=== PATIENT | male | born 1940 | race Caucasian/White ===

== ENCOUNTER 2018-08-07 06:01 | Day surgery (SDC) | payer MEDICARE ==
[~2018-08-07 06:01] MED LIST: ACETAMINOPHEN 1,000 MG/100 ML BTL IV ONE; CEFAZOLIN 2 Gram 2 GM/50 ML BAG IVPB ONE; CELECOXIB 100 MG CAPSULE PO ONE; FAMOTIDINE 20MG TABLET PO ONE; MECLIZINE 25 MG TABLET PO ONE; METOCLOPRAMIDE 10 MG TABLET PO ONE
[2018-08-07] MEDS ORDERED: DEXAMETHASONE 4 MG/ML 1ML VIAL IVP ONE (06:02)
[2018-08-07] MEDS ORDERED: SEVOFLURANE 250 ML INH ONE (06:02)
[2018-08-07] MEDS ORDERED: TRANEXAMIC ACID 1,000 MG/10 ML ML IV ONE (06:02)
[2018-08-07] MEDS ORDERED: LIDOCAINE 2% MDV (20MG/ML) 20ML VIAL IV ONE (06:02)
[2018-08-07] MEDS ORDERED: BUPIVACAINE LIPOSOME 266MG/20ML VIAL IV ONE (06:02)
[2018-08-07] MEDS ORDERED: PROPOFOL 10 MG/ML VIAL IV ONE (06:02)
[2018-08-07] MEDS ORDERED: HYDROMORPHONE HCL 2 MG/ML VIAL IV ONE (06:02)
[2018-08-07] MEDS ORDERED: FENTANYL PF 100MCG/2ML VIAL IV ONE (06:02)
[2018-08-07] MEDS ORDERED: ROPIVACAINE HCL (NAROPIN) /PF 5MG/ML 20ML VIAL IV ONE (06:02)
[2018-08-07] MEDS ORDERED: KETOROLAC 30 MG/ML VIAL IVP ONE (06:02)
[2018-08-07] MEDS ORDERED: MIDAZOLAM HCL 2MG/2ML VIAL IV ONE (06:02)
[2018-08-07] MEDS ORDERED: BUPIVACAINE 0.25% W/EPI MPF 30ML VIAL IVP ONE (06:02)
[2018-08-07] MEDS ORDERED: OXYCODONE HCL/APAP 5MG/325MG TABLET PO PRN (10:08)
[2018-08-07] MEDS ORDERED: HYDROCODONE/APAP 5/325MG TABLET PO PRN ×2 (10:08)
[2018-08-07] MEDS ORDERED: METOCLOPRAMIDE HCL 10 MG/2 ML VIAL IVP PRN (10:15)
[2018-08-07] MEDS ORDERED: MAGNESIUM HYDROXIDE 30 ML UDC PO PRN (10:15)
[2018-08-07] MEDS ORDERED: SENNOSIDES/DOCUSATE SODIUM UD CAPSULE PO PRN (10:15)
[2018-08-07] MEDS ORDERED: HYDROMORPHONE HCL 2 MG/ML VIAL IV PRN (10:15)
[2018-08-07] MEDS ORDERED: NALOXONE 0.4 MG/1 ML VIAL IVP PRN (10:15)
[2018-08-07] MEDS ORDERED: DIPHENHYDRAMINE HCL 25 MG CAPSULE PO PRN (10:15)
[2018-08-07] MEDS ORDERED: TRAMADOL HCL 50 MG TABLET PO PRN ×2 (10:15)
[2018-08-07] MEDS ORDERED: AL HYDROX/MAG HYDROX 30ML UD PO PRN (10:15)
[2018-08-07] MEDS ORDERED: ONDANSETRON HCL IV 4 MG/2 ML VIAL IVP PRN (10:15)
[2018-08-07] MEDS ORDERED: ZOLPIDEM TARTRATE 5 MG TABLET PO PRN (10:15)
[2018-08-07] MEDS ORDERED: TRANEXAMIC ACID 1,000 MG in 0.9 % SODIUM CHLORIDE 100ML 100 ML IVPB ONE (11:00)
[2018-08-07] MEDS: RINGERS SOLUTION,LACTATED 1,000 ML IV SCH (13:25)
--- NOTE | 2018-08-07 15:01 | Rehab Evaluation ---
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 left shoulder right elbow sx right ear sx PMH - Respiratory Hx Respiratory Disorders Yes Hx Pneumonia Yes: after CABG Hx Sleep Apnea Yes Hx of CPAP No PMH - Cardiovascular Hx Cardiovascular Disorders Yes Hx Abnormal EKG Yes Hx Cardiac Catheterization Yes Hx Congestive Heart Failure Yes: possibly after CABG Hx Heart Attack No Hx Coronary Artery Disease Yes Hx Coronary Artery Bypass Yes Graft Hx Heart Murmur Yes Hx of Prosthetic Valve Yes: Aortic 8 yrs ago Exercise Tolerance Good Comment: hyperlipidemia PMH - Neuro Hx Neurological Disorders No PMH - GI Hx Gastrointestinal Disorders No PMH - Hx Genitourinary Disorders No PMH - Endocrine Hx Endocrine Disorders No PMH - Musculoskeletal Hx Musculoskeletal Disorders Yes Hx Arthritis Yes: knees Comment: right knee pain PMH - Psych Hx Psychiatric Problems No PMH - Hematology/Oncology Hx Hematology/Oncology Yes Disorders Hx Bruising Yes: easy bruising Premorbid Status: Detail (The patient was previously independent with all mobility prior to surgery.) Social History: Detail (The patient lives alone in a one story house with no stairs at the enterance. The patient has a friend who will be staying with him initially. The patient's bathroom is equipped with a walk in shower with a seat and a standard toilet. The patient has a standard walker and a single point cane.) Precautions: [place], Fall - Time With Patient Total Time Spent With Patient (Min): 30 Treatment Procedures: Detail (Initial Evaluation, gait training) Subjective Information - Subjective Information Per Patient (The patient had no complaints of pain but stated he felt lethargic. ) Objective Data - Mental Status Patient Orientation: Oriented x3 - Visual Perception Appears within normal limits for therapeutic activities - ROM Not within normal limits (The patient's R knee is limited as to be expected s/p surgery.) - Strength/Tone Not within normal limits (The patient 's R LE strength was not tested secondary to s/p surgery however the patient's strength is functional ie: the patient is able to complete a SLR. The patient's L LE strength was generally 4+ to 5/5.) - Bed Mobility Independent (The patient was independent with supine to and from sit transfer and scooting up in bed with use of trapeze.) - Transfers Independent (The patient was independent with sit to and from stand transfer.) - Balance Balance Sitting: Good Balance Standing: Good - Sensation Intact - Gait Detail (The patient ambulated with standard walker a distance of 108 feet WBAT on the R LE with CG for safety.) Therapy Assessment - Therapy Assessment Detail (The patient was independent with bed mobility and transfers and ambulated community distances. Feel the patient will progress well with mobility.) Problem List - Problem List Physical Therapy Problem List: Detail (1) Decreased R knee AROM 2) Decreased R LE strength) Goals - Goals Physical Therapy Goals: The patient will be independent with TKA HEP and will be able to indentify the proper technique of stair climbing. Prognosis - Prognosis Good Plan - Plan Physical Therapy Plan: PT 1-2 sessions for instruction in HEP.
[2018-08-07] MEDS: PATIENT OWN MED: ALPRAZOLAM 0.5 MG PO SCH (15:10)
--- NOTE | 2018-08-07 16:50 | Operative Note ---
DATE OF SURGERY: 08/07/2018 Surgeon: Liam Blankenship DO Referring physician: Aldo Man DO PREOPERATIVE DIAGNOSIS: Primary osteoarthritis of the right knee. POSTOPERATIVE DIAGNOSIS: Primary osteoarthritis of the right knee. OPERATION: Right total knee arthroplasty. Anesthesia: General. Indication: This 78-year-old male was taken to the operating room and placed in the supine position on the operating room table. A general anesthetic was induced. The right lower extremity was elevated, prepped with Hibiclens and draped in the usual sterile fashion. All scrubbed personnel wore personal isolation suits. After exsanguination and tourniquet and elevation, an anterior longitudinal midline incision was made, followed by a medial parapatellar arthrotomy incision. The intercondylar drill hole was made for the intramedullary alignment juanjo and the distal femoral cutting block was placed at 6 degree valgus 9 mm cut for the distal femur. The appropriate cut was made and subsequently the sizing jig was fixed and a size 72.5 was seen to be the appropriate size. The 4-in-1 cutting block was then pinned in 3 degrees of external rotation and the appropriate cuts were made. We then directed our attention to the proximal tibia. An extramedullary alignment guide was used to cut the proximal tibia. Once the cutting block had been set, we had referenced a 10 mm cut off the lateral tibial plateau. This was just enough to get us below the subchondral bone medially and the appropriate cut was subsequently made, a 3 degree posterior slope cut was made. The wafers of bone were removed. Remnants of the menisci and osteophytes were removed from the posterior aspect of the joint. The wound was irrigated to remove debris from the joint. The tissue tensioning device was used to assure equal flexion and extension gaps. Once this was found to be satisfactory, the patella was cut and restored to anatomic height with a 37 x 10 mm patella. The tibia was sized to a size 83 and a stem punch was used. A 10 mm bearing was subsequently inserted with a 72.5 femur and trial reduction was accomplished with the trial component. The patient had full extension with excellent stability medially and laterally throughout the entire range of motion, with no instability in flexion. The trial components were then removed and the wound copiously irrigated with pulse lavage lactated Ringer's solution. Exparel was injected into the posterior medial and lateral corners of the joint. All bony surfaces were dried and after the insertion of each component excess cement was removed. We began with the tibial component. This was cemented first, followed by the insertion of the tibia bearing, femoral component, and finally the patella. Once the cement had hardened, the knee was again taken through range of motion and was found to be stable. The remainder of the Exparel was injected in the periosteum and joint capsule of the proximal tibia and distal femur. The drain was placed through a separate stab incision and the arthrotomy incision was closed with #2 Vicryl, the subcutaneous tissue closed with 0 Vicryl and the skin was stapled. Sterile dressings with a Polar Care were applied. The patient was taken to the recovery room in satisfactory condition. GROSS PATHOLOGY: This patient demonstrated severe medial compartment and patellofemoral osteoarthritis with full-thickness articular cartilage loss noted in both, the lateral compartment being more relatively spared with grade 2 changes being noted there. Final components inserted were: A Renaldo [employer] size 72.5 cruciate retaining femur, a size 83 tibia base plate, a 10 mm anterior stabilized tibial bearing, and a 37 x 10 mm patella was used. EVELYEN
[2018-08-07] MEDS: CEFAZOLIN 2 Gram 2 GM/50 ML BAG IVPB SCH (16:59)
[2018-08-07] MEDS: OXYCODONE HCL/APAP 5MG/325MG TABLET PO PRN (19:01)
[2018-08-07] MEDS: ASPIRIN 325 MG TAB ENTERIC-COATED PO SCH (21:46)
[2018-08-07] MEDS ORDERED: PATIENT OWN MED: FENOFIBRATE 160 MG PO SCH (22:00)
[2018-08-07] MEDS ORDERED: ZOLPIDEM 5 MG PO SCH (22:00)
[2018-08-07] MEDS ORDERED: ATROVASTATIN 40 MG PO SCH (22:00)
[2018-08-08] MEDS: RINGERS SOLUTION,LACTATED 1,000 ML IV SCH ×2 (00:05→04:53)
[2018-08-08] MEDS: CEFAZOLIN 2 Gram 2 GM/50 ML BAG IVPB SCH ×2 (00:07→06:40)
[2018-08-08] MEDS: OXYCODONE HCL/APAP 5MG/325MG TABLET PO PRN (01:25)
[2018-08-08] MEDS: PATIENT OWN MED: ALPRAZOLAM 0.5 MG PO SCH ×3 (06:42→12:10)
[2018-08-08 06:45] LABS: HEMATOCRIT 33.8 % (42.0-52.0); HEMOGLOBIN 10.9 gm/dl (14.0-18.0); MEAN CELL VOLUME 91.8 fl (81-97); MEAN CORPUSCULAR HEMOGLOBIN 29.6 pg (27-33); MEAN CORPUSCULAR HGB CONC 32.2 g/dl (32-36); MEAN PLATELET VOLUME 9.7 fl (7.4-10.4); PLATELET COUNT 163 K/uL (130-400); RED BLOOD COUNT 3.68 M/uL (4.40-5.70); RED CELL DISTRIBUTION WIDTH 13.4 % (11.5-14.5); WHITE BLOOD COUNT W/O DIFF 13.3 K/uL (4.2-12.2)
[2018-08-08] MEDS: ASPIRIN 325 MG TAB ENTERIC-COATED PO SCH (09:43)
--- NOTE | 2018-08-08 09:46 | Physical Therapy Tx Note ---
Physical Therapy Tx Note - Treatment Note Tolerated: Good Total Time Spent With Patient: 20 Physical Therapy Tx Note: Detail (The patient was in bed when PT arrived. The patient had no complaints of pain. The patient completed TKA exercises: heel slides, ankle pumps, quad sets, hamstring sets, gluteal sets,SLR .The patient does not have stairs at home but was able to verbalize the proper technique of climbing stairs. The patient ambulated 120 feet x 1 with standard walker WBAT on the R LE. The patient has met all inpatient goals.) Physical Therapy Problem List: Detail (1) Decreased R knee AROM 2) Decreased R LE strength) Physical Therapy Goals: GOALS MET: The patient will be independent with TKA HEP and will be able to indentify the proper technique of stair climbing. Physical Therapy Plan: PT 1-2 sessions for instruction in HEP.
--- NOTE | 2018-08-08 09:52 | Physical Therapy Tx Note ---
Physical Therapy Tx Note - Treatment Note Physical Therapy Tx Note: Detail (In addition to previous note. see plan.) Physical Therapy Problem List: Detail (1) Decreased R knee AROM 2) Decreased R LE strength) Physical Therapy Goals: GOALS MET: The patient will be independent with TKA HEP and will be able to indentify the proper technique of stair climbing. Physical Therapy Plan: Patient is discharged from PT and is to continue with outpatient PT.
[2018-08-08] MEDS ORDERED: CELECOXIB 100 MG CAPSULE PO SCH (10:00)
[2018-08-08] MEDS ORDERED: PATIENT OWN MED: SERTRALINE 50 MG PO SCH (10:00)
[2018-08-08] MEDS ORDERED: ACETAMINOPHEN 325 MG TAB PO PRN (10:15)
--- NOTE | 2018-08-08 11:29 | Rehab Evaluation ---
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 left shoulder right elbow sx right ear sx PMH - Respiratory Hx Respiratory Disorders Yes Hx Pneumonia Yes: after CABG Hx Sleep Apnea Yes Hx of CPAP No PMH - Cardiovascular Hx Cardiovascular Disorders Yes Hx Abnormal EKG Yes Hx Cardiac Catheterization Yes Hx Congestive Heart Failure Yes: possibly after CABG Hx Heart Attack No Hx Coronary Artery Disease Yes Hx Coronary Artery Bypass Yes Graft Hx Heart Murmur Yes Hx of Prosthetic Valve Yes: Aortic 8 yrs ago Exercise Tolerance Good Comment: hyperlipidemia PMH - Neuro Hx Neurological Disorders No PMH - GI Hx Gastrointestinal Disorders No PMH - Hx Genitourinary Disorders No PMH - Endocrine Hx Endocrine Disorders No PMH - Musculoskeletal Hx Musculoskeletal Disorders Yes Hx Arthritis Yes: knees Comment: right knee pain PMH - Psych Hx Psychiatric Problems No PMH - Hematology/Oncology Hx Hematology/Oncology Yes Disorders Hx Bruising Yes: easy bruising Premorbid Status: Detail (The patient was previously independent with all mobility, self cares and all IADLs prior to surgery.) Social History: Detail (The patient lives alone in a one story house with a walk out basement. He lives in the basement and does not use the upper level. There are no stairs at the entrance. The patient has a friend who will be staying with him initially. The patient's bathroom is equipped with a walk in shower with a seat and a standard toilet with a grab bar. The patient has a standard walker and a single point cane.) Precautions: [place], Fall - Time With Patient Total Time Spent With Patient (Min): 45 Treatment Procedures: Detail (OT eval low complexity) Subjective Information - Subjective Information Per Patient Objective Data - Pain Pain Present: No - Mental Status Patient Orientation: Oriented x3 - Visual Perception Appears within normal limits for therapeutic activities - ROM Within normal limits (Ernesto UE AROM WNL) - Strength/Tone Within normal limits (Ernesto UE strength WNL) - Coordination Appears within normal limits for therapeutic activities - Bed Mobility Independent - Transfers Independent (Ind with sit to stand) - Balance Balance Sitting: Good Balance Standing: Good - Sensation Intact - Gait Detail (Pt ambulating in room with standard walker.) - ADL's/IADL's Detail (Pt educated and able to demonstrate learning of modified LE dressing techniques including socks and slip on shoes. Pt verbalized understanding of modified technique for shorts. Reviewed kitchen and shower safety and modifications, pt verbalized learning.) Therapy Assessment - Therapy Assessment Detail (Pt is safe and Ind with modified ADL techniques.) Problem List - Problem List Physical Therapy Problem List: Detail (1) Decreased R knee AROM 2) Decreased R LE strength) Occupational Therapy Problem List: Detail (No current OT problems identified.) Goals - Goals Physical Therapy Goals: GOALS MET: The patient will be independent with TKA HEP and will be able to indentify the proper technique of stair climbing. Occupational Therapy Goals: No current IP OT goals identified. Prognosis - Prognosis Good Plan - Plan Physical Therapy Plan: Patient is discharged from PT and is to continue with outpatient PT. Occupational Therapy Plan: No further IP OT recommended. Thank you for this referral.
--- NOTE | 2018-08-10 10:10 | Discharge Summary ---
DATE OF ADMISSION: 08/07/2018 DATE OF DISCHARGE: 08/08/2018 ADMITTING DIAGNOSIS: Osteoarthritis of the right knee. DISCHARGE DIAGNOSIS: Osteoarthritis of the right knee. OPERATIVE PROCEDURE: Elective right total knee arthroplasty. DESCRIPTION: This 78-year-old male was admitted to the hospital for elective total knee arthroplasty of his right knee. He tolerated the operative procedure well, progressed satisfactorily with physical therapy. The drain was removed the first postoperative day. He cleared physical therapy and was ready for discharge. The patient did not take any narcotic medication during the course of his hospitalization following the surgery. The patient will be discharged with outpatient physical therapy. He was instructed to use his AIME hose during the day and remove them at night. He was instructed to take 325 mg of aspirin daily for 2 weeks and then he could go back to his 81 mg aspirin. He was given a prescription for Percocet 5/325 mg, #40, to take 1 q.4 h. p.r.n. pain. Routine wound care instructions were given. He will follow up in 2 weeks. Should he have any problems prior to being seen, he was instructed to call my office. EVELYNE
== END 2018-08-08 13:20 | disposition home or self-care (01) ==
LOC: SUR 06:01 → MEDSURG 09:51 → SUR 08-08 13:20
PROVIDERS: ATTEND Orthopaedic Surgery
DX: M17.11 Unilateral primary osteoarthritis, right knee (principal); E78.00 Pure hypercholesterolemia, unspecified
CPT/HCPCS: 27447; 01402; 64447; 85025; J1885; J3010; J1170; J0690 ×2; C9290; J3490; J2795; G8978; G8979 ×2; G8980; G8987; G8988; G8989; 76942; 97110; J7120